=== PATIENT | male | born 1945 | race Caucasian/White ===

== ENCOUNTER 2019-11-30 15:48 | Emergency (ER) | payer MEDICARE, BC ==
--- NOTE | 2019-11-30 16:23 | EDM.PDOC ---
ED HPI GENERAL MEDICAL PROBLEM - General Chief Complaint: Abdominal Pain Stated Complaint: LOW ABDOMINAL PAIN Time Seen by Provider: 11/30/19 16:08 Source of Information: Reports: Patient, Family History Limitations: Reports: No Limitations - History of Present Illness INITIAL COMMENTS - FREE TEXT/NARRATIVE: Patient is an unfortunate 74-year-old male who presents emergency Department today with complaint of abdominal cramping. Patient reports that he had sudden onset of abdominal cramping approximately 10:30 this morning which is a crampy type pain in the left lower quadrant of his abdomen which comes on last several minutes and then relents. Pain never totally goes away however and because of this the patient came to the emergency Department today for evaluation. 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 He has not had a bowel movement in the last 5 weeks. State and suppositories today and has been using stool softeners without any relief. He does report that he had a little bit of a bowel movement yesterday Lower Abdomen Pain Score (Numeric/FACES): 7 - Related Data Allergies Allergy/AdvReac Type Severity Reaction Status Date / Time No Known Allergies Allergy Verified 11/30/19 16:13 Home Meds: Home Meds Apixaban [Eliquis] 5 mg PO DAILY 11/30/19 [History] Docusate Sodium [Stool Softener] 200 mg PO DAILY 11/30/19 [History] Folic Acid 1 mg PO DAILY 11/30/19 [History] KCl/Na Sulf,Bicarb,Cl/PEG 3351 [GoLytely] 4,000 ml PO ONETIME #1 bottle [Rx] Levothyroxine [Synthroid] 50 mcg PO DAILY 11/30/19 [History] Losartan/Hydrochlorothiazide [Losartan-HCTZ 50-12.5 MG] 1 tab PO DAILY 11/30/19 [History] Megestrol Acetate 400 mg PO DAILY 11/30/19 [History] Polyethylene Glycol [Polyox Wsr-301] 17 gm PO DAILY 11/30/19 [History] Prochlorperazine [Compazine] 10 mg PO Q6H PRN 11/30/19 [History] dexAMETHasone [Dexamethasone] 4 mg PO DAILY 11/30/19 [History] oxyCODONE 5 mg PO Q6H PRN 11/30/19 [History] ED ROS GENERAL - Review of Systems Review Of Systems: See Below Constitutional: Denies: Fever, Chills GI/Abdominal: Reports: Abdominal Pain, Constipation. Denies: Nausea, Vomiting ED EXAM, GI/ABD - Physical Exam Exam: See Below Exam Limited By: No Limitations General Appearance: Alert, WD/WN, Mild Distress Head: Atraumatic, Normocephalic Neck: Normal Inspection, Supple, Non-Tender, Full Range of Motion Respiratory/Chest: No Respiratory Distress, Lungs Clear, Normal Breath Sounds, No Accessory Muscle Use, Chest Non-Tender, Other ([id number] right chest wall ) Cardiovascular: Normal Peripheral Pulses, Regular Rate, Rhythm, No Edema, No Gallop, No JVD, No Murmur, No Rub GI/Abdominal Exam: Normal Bowel Sounds, Soft, Tender (mild diffuse), Hepatomegaly Back Exam: Normal Inspection, Full Range of Motion, NT Extremities: Normal Inspection, Normal Range of Motion, Non-Tender, Normal Capillary Refill, No Pedal Edema Neurological: Alert Skin Exam: Warm, Dry Course - Vital Signs Last Recorded V/S: Last Vital Signs Temp 97.4 F 11/30/19 16:05 Pulse 77 11/30/19 16:05 Resp 16 11/30/19 16:05 BP 139/79 11/30/19 16:05 Pulse Ox 97 11/30/19 16:05 - Orders/Labs/Meds Orders: Active Orders 24 hr Category Date Time Status Communication Order [RC] ASDIRECTED Care 11/30/19 16:23 Active Sodium Chloride 0.9% [Saline Flush] Med 11/30/19 19:29 Active 10 ml FLUSH ONETIME PRN Medication Orders Sodium Chloride (Saline Flush) 10 ml FLUSH ONETIME PRN PRN Reason: KEEP VEIN OPEN Last Admin: 11/30/19 19:42 Dose: 10 ml Labs: Laboratory Tests 11/30/19 11/30/19 11/30/19 Range/Units 17:00 17:00 17:10 WBC 13.55 H (4.23-9.07) K/mm3 RBC 3.98 L (4.63-6.08) M/mm3 Hgb 11.8 L D (13.7-17.5) gm/dl Hct 36.4 L (40.1-51.0) % MCV 91.5 (79.0-92.2) fl MCH 29.6 (25.7-32.2) pg MCHC 32.4 (32.2-35.5) g/dl RDW Std Deviation 48.5 H (35.1-43.9) fL Plt Count 345 H (163-337) K/mm3 MPV 9.1 L (9.4-12.3) fl Neut % (Auto) 85.0 H (34.0-67.9) % Lymph % (Auto) 9.1 L (21.8-53.1) % Gray % (Auto) 4.3 L (5.3-12.2) % Eos % (Auto) 1.4 (0.8-7.0) Baso % (Auto) 0.1 (0.1-1.2) % Neut # (Auto) 11.51 H (1.78-5.38) K/mm3 Lymph # (Auto) 1.23 L (1.32-3.57) K/mm3 Gray # (Auto) 0.58 (0.30-0.82) K/mm3 Eos # (Auto) 0.19 (0.04-0.54) K/mm3 Baso # (Auto) 0.02 (0.01-0.08) K/mm3 Manual Slide Review Abnormal smear Sodium 134 L (136-145) mEq/L Potassium 3.6 (3.5-5.1) mEq/L Chloride 101 (98-107) mEq/L Carbon Dioxide 24 (21-32) mEq/L Anion Gap 12.6 (5-15) BUN 22 H (7-18) mg/dL Creatinine 1.0 (0.7-1.3) mg/dL Est Cr Clr Drug Dosing TNP Estimated GFR (MDRD) > 60 (>60) mL/min BUN/Creatinine Ratio 22.0 H (14-18) Glucose 100 (83-115) mg/dL Calcium 9.3 (8.5-10.1) mg/dL Total Bilirubin 0.3 (0.2-1.0) mg/dL AST 37 (15-37) U/L ALT 31 (16-63) U/L Alkaline Phosphatase 74 (46-116) U/L Total Protein 7.4 (6.4-8.2) g/dl Albumin 2.4 L (3.4-5.0) g/dl Globulin 5.0 gm/dL Albumin/Globulin Ratio 0.5 L (1-2) Urine Color Yellow (Yellow) Urine Appearance Clear (Clear) Urine pH 6.5 (5.0-8.0) Ur Specific [place] 1.025 (1.005-1.030) Urine Protein Negative (Negative) Urine Glucose (UA) Negative (Negative) Urine Ketones Negative (Negative) Urine Occult Blood Trace-intact H (Negative) Urine Nitrite Negative (Negative) Urine Bilirubin Negative (Negative) Urine Urobilinogen 0.2 (0.2-1.0) Ur Leukocyte Esterase Negative (Negative) Urine RBC 0-5 (0-5) /hpf Urine WBC 0-5 (0-5) /hpf Ur Squamous Epith Cells 0-5 (0-5) /hpf Urine Bacteria Few (FEW) /hpf Urine Mucus Few (FEW) /hpf Meds: Medications Generic Name Dose Route Start Last Admin Trade Name Freq PRN Reason Stop Dose Admin Sodium Chloride 10 ml 11/30/19 19:29 11/30/19 19:42 Saline Flush FLUSH 10 ml ONETIME PRN Administration KEEP VEIN OPEN Discontinued Medications Generic Name Dose Route Start Last Admin Trade Name Freq PRN Reason Stop Dose Admin Diatrizoate Meglum/Diatrizoate Sod 60 ml 11/30/19 19:29 11/30/19 19:42 Gastrografin 37% PO 11/30/19 19:30 60 ml ONETIME ONE Administration Dicyclomine HCl 20 mg 11/30/19 16:46 11/30/19 17:40 Bentyl IM 11/30/19 16:47 20 mg ONETIME ONE Administration Iopamidol 100 ml 11/30/19 19:29 11/30/19 19:42 Isovue-300 (61%) IVPUSH 11/30/19 19:30 100 ml ONETIME ONE Administration - Re-Assessments/Exams Free Text/Narrative Re-Assessment/Exam: 11/30/19 16:47 Two-view abdomen interpreted by me stool throughout otherwise NAD Free Text/Narrative Re-Assessment/Exam: 11/30/19 20:13 CT abdomen and pelvis "impression: #1 liver lesions slightly increased in size from previous exam as noted above. #2 increased stool throughout the colon. #3 other findings which are nonacute as described above." Departure - Departure Time of Disposition: 20:14 Disposition: Home, Self-Care 01 Condition: Good Clinical Impression: Constipation Qualifiers: Constipation type: unspecified constipation type Qualified Code(s): K59.00 - Constipation, unspecified - Discharge Information Prescriptions: KCl/Na Sulf,Bicarb,Cl/PEG 3351 [GoLytely] 4,000 ml PO ONETIME #1 bottle Referrals: Sybil Dixon, [facility] [Primary Care Provider] - Forms: ED Department Discharge Additional Instructions: Home, rest, if no results from magnesium citrate in 12 hours fill and take prescription, return as needed for worsening condition Sepsis Event Note - Evaluation Sepsis Screening Result: No Definite Risk - Focused Exam Vital Signs: Vital Signs Temp Pulse Resp BP Pulse Ox 11/30/19 16:05 97.4 F 77 16 139/79 97 Date Exam was Performed: 11/30/19 Time Exam was Performed: 20:13 - My Orders Last 24 Hours: My Active Orders 11/30/19 16:23 Communication Order [RC] ASDIRECTED 11/30/19 19:29 Sodium Chloride 0.9% [Saline Flush] 10 ml FLUSH ONETIME PRN - Assessment/Plan Last 24 Hours: My Active Orders 11/30/19 16:23 Communication Order [RC] ASDIRECTED 11/30/19 19:29 Sodium Chloride 0.9% [Saline Flush] 10 ml FLUSH ONETIME PRN
[2019-11-30] MEDS ORDERED: Dicyclomine 20 MG/2 ML SDV IM ONE (16:46)
--- NOTE | 2019-11-30 17:04 | CR ---
Abdomen: Supine and upright views the abdomen were obtained. Comparison: No prior abdominal x-ray. Slight increased stool is seen within portions of the colon. Multiple surgical clips are seen within the pelvis. Mild degenerative change is noted within the lumbar spine. Bony structures are osteopenic. No free air is seen. Inferior vena cava filter is noted. Impression: 1. Slight increased stool. 2. Other incidental findings. Nothing acute is seen. Diagnostic code #2 Study was dictated in [place] Standard Time
[2019-11-30] MEDS ORDERED: Sodium Chloride 0.9% 10 ML Syringe FLUSH PRN (19:29)
[2019-11-30] MEDS ORDERED: Iopamidol 612 MG/ML 100 ML Bottle IVPUSH ONE (19:29)
[2019-11-30] MEDS ORDERED: Diatrizoate Meglumine/Diatrizoate Sodium 37% 120 ML Bottle PO ONE (19:29)
--- NOTE | 2019-11-30 20:11 | CT ---
CT abdomen and pelvis Technique: Multiple axial sections were obtained from above the dome of the diaphragm inferiorly through the pubic symphysis. Intravenous and oral contrast was utilized. Comparison: Prior CT abdomen and pelvis study of 10/11/19. Findings: Linear area of atelectasis is seen within the left lung base. Low-density lesion is seen within the liver measuring about 11.4 cm x 10.7 cm. In similar measurement plane on prior study this measures about 10.0 cm x 10.0 cm. This finding therefore is felt to have slightly increased in size from previous exam. No additional abnormality is seen within the liver. Spleen appears within normal limits. Adrenal glands show no nodule. Pancreas shows no discrete abnormality. Kidneys show symmetric contrast enhancement. Small cyst is noted within each kidney which are felt to be stable from previous exam. Inferior vena cava filter is noted. Aorta shows no aneurysm. No retroperitoneal adenopathy is seen. Appendix not visualized. No pelvic mass or adenopathy is seen. Surgical clips are seen within the pelvis. No free fluid or inflammatory change is appreciated. Increased stool is noted throughout the colon. Delayed images shows contrast within the distal ureters and bladder. Bone window settings were reviewed shows mild degenerative change throughout the spine. No acute osseous finding is appreciated. Impression: 1. Liver lesion slightly increased in size from previous exam as noted above. 2. Increased stool throughout the colon. 3. Other findings which are nonacute as described above. Diagnostic code #9 Study was dictated in [place] Standard Time
[2019-11-30] MEDS ORDERED: Magnesium Citrate Solution 296 ML Bottle PO ONE (20:16)
== END 2019-11-30 20:47 | disposition home or self-care (01) ==
LOC: JD.ED 15:48
DX: K59.00 Constipation, unspecified (principal)
CPT/HCPCS: 36415; 74019; 74177; 80053; 81001; 85025; 96372; 99284; A9270; J0500; J1642; Q9963; Q9967; 99283